=== PATIENT | male | born 1960 | race Caucasian/White ===

== ENCOUNTER 2016-11-18 05:58 | Day surgery (SDC) | payer OTHER ==
--- NOTE | 2016-11-04 10:37 | HP ---
DATE OF ADMISSION: 11/18/2016. DATE OF OFFICE VISIT: 11/03/2016. SURGEON: Dr. Martha Hopkins. PROCEDURE: Left knee arthroscopy with partial medial meniscectomy. CHIEF COMPLAINT: Left knee pain. HISTORY OF PRESENT ILLNESS: Mr. Powell is a 56-year-old gentleman with complaints of left knee pain. An MRI showed a medial meniscus tear and he has elected to proceed with surgery. PAST MEDICAL HISTORY: Hypertension, high cholesterol, coronary artery disease, psoriasis, history of right leg cellulitis. PAST SURGICAL HISTORY: Placement of heart stents, right total hip arthroplasty , left wrist tendon repair, wisdom teeth extraction. CURRENT MEDICATIONS: Atorvastatin, calcium, Benicar, Diltiazem, aspirin, vitamin D, multivitamin and calcium. ALLERGIES: PROCARDIA. FAMILY HISTORY: Heart disease, liver and colon cancer, melanoma. SOCIAL HISTORY: He is a 56-year-old gentleman. He is and lives with his and two kids. He does not smoke or use drugs. Uses occasional alcohol. REVIEW OF SYSTEMS: A complete 14 point review of systems is reviewed with patient and all is negative or noncontributory. PHYSICAL EXAMINATION GENERAL: Well-developed, well-nourished. He is in no acute distress. VITAL SIGNS: 6'1" tall, he is 275 pounds, blood pressure 159/94, heart rate 96. HEENT: Normocephalic, atraumatic. NECK: No palpable lymph nodes. Trachea is midline. CARDIAC: Regular rate and rhythm. PULMONARY: The lungs are clear to auscultation bilaterally. ABDOMEN: Soft, nontender, nondistended. MUSCULOSKELETAL: Left lower extremity: Skin is intact. He does have mild to moderate psoriatic plaques over the left anterior knee. There is a moderate effusion. He has full range of motion. Very tender over the medial joint line. 2+ dorsalis pedis pulses. His lower extremity muscle group strengths are intact at 5/5. He walks with an antalgic type gait favoring his left leg. NEUROLOGIC: He is alert and oriented times three. Cranial nerves II through XII are intact. ASSESSMENT AND PLAN: Mr. Powell is a 56-year-old gentleman with complaints of left knee pain secondary to a medial meniscus tear. He has failed conservative management and has elected to proceed with left knee arthroscopy with partial medial meniscectomy. His surgery will be completed by Dr. Hopkins and he will follow- up with her in 10 to 14 days after the surgery. MARIA ISABEL AQUINO [id number]/[facility] #: [id number] MTDJesse
[2016-11-18] MEDS ORDERED: Buffered Lidocaine 1% SYRIN* 3 ML/SYR SYRINGE INTRADERM ONE (06:00)
[2016-11-18] MEDS ORDERED: ceFAZolin 2 GM PREMIX(*) 2 GM/50 ML BAG IVPB ONE (06:00)
[2016-11-18] MEDS ORDERED: EPINEPHrine AMP 1 MG/ML ONE (07:11)
[2016-11-18] MEDS ORDERED: Bupivacaine 0.5% W/EPI SDV* 30 ML VIAL ONE (07:11)
[2016-11-18] MEDS ORDERED: methylPREDNISolone ACETATE 80* 80 MG/ML 1 ML VIAL ONE (07:11)
[2016-11-18] MEDS ORDERED: Bupivacaine 0.5% SDV PF* 30 ML VIAL ONE (07:15)
[2016-11-18] MEDS ORDERED: fentaNYL* 50 MCG/ML 2 ML VIAL (100 MCG VIAL) ONE ×3 (07:16→08:53)
[2016-11-18] MEDS ORDERED: Midazolam* 1 MG/ML 2 ML VIAL (2 MG) ONE (07:16)
[2016-11-18] MEDS ORDERED: ceFAZolin 1 GM in Dextrose (*) 1 GM/50 ML BAG IVPB ONE (07:33)
[2016-11-18] MEDS ORDERED: Lidocaine 2% PF * 5 ML VIAL ONE (07:53)
[2016-11-18] MEDS ORDERED: Famotidine IV* 10 MG/ML 2 ML (20 mg) ONE (07:53)
[2016-11-18] MEDS ORDERED: Propofol* 10 MG/ML 20 ML BTL IV PUSH ONE (07:53)
[2016-11-18] MEDS ORDERED: Dexamethasone IV* 4 MG/ML 1 ML (4 MG) ONE (07:53)
[2016-11-18] MEDS ORDERED: Ketorolac INJ* 30 MG/ML 1 ML VIAL ONE (07:53)
[2016-11-18] MEDS ORDERED: HYDROcodone/ACETAMIN 5-325 MG* 1 TAB PO PRN (08:00)
[2016-11-18] MEDS ORDERED: Morphine INJ* 2 MG/ML 1 ML SYRINGE IV PRN (08:00)
[2016-11-18] MEDS ORDERED: Acetaminophen TAB* 325 MG PO PRN (08:00)
[2016-11-18] MEDS ORDERED: DiMENhydriNATE IV* 50 MG/ML VIAL IV PUSH PRN (08:00)
[2016-11-18] MEDS ORDERED: PROCHLORPERAZINE INJ 5 MG/ML 2 ML VIAL IV PRN (08:00)
[2016-11-18] MEDS ORDERED: Ondansetron INJ* 2 MG/ML VIAL IV PRN (08:00)
[2016-11-18] MEDS: fentaNYL* 50 MCG/ML 2 ML VIAL (100 MCG VIAL) IV PRN ×3 (08:53→09:15)
[2016-11-18] MEDS ORDERED: oxyCODONE/Acetamin 5/325 MG* TAB ONE (09:21)
[2016-11-18] MEDS ORDERED: Morphine INJ* 4 MG/ML 1 ML SYRINGE ONE (09:38)
[2016-11-18 10:31] VITALS: BP 138/90
--- NOTE | 2016-11-19 00:20 | OP ---
DATE OF OPERATION: 11/18/16 - [facility] DATE OF : 60 SURGEON: Martha Hopkins MD PIPE STRAIGHTENER: MARIA ISABEL Prescott ANESTHESIOLOGIST: Dr. Alejandro. ANESTHESIA: General. PRE-OP DIAGNOSES: Left knee medial meniscal tear, mild arthritis. 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 OPERATIVE PROCEDURE: Left knee arthroscopy with partial medial meniscectomy, medial chondroplasty, anterior synovectomy. ESTIMATED BLOOD LOSS: Less than 25 cc. COMPLICATIONS: None. SPECIMEN: None. BRIEF HISTORY: Mr. Powell is a 56-year-old gentleman who had a twisting injury to the left knee more than 6 weeks ago. Conservative management failed to relieve his pain. His physical and history were consistent with meniscal tear. MRI confirmed a medial meniscal tear. Plain radiographs showed arthritic changes that were mild. Informed consent was obtained from the patient. He wished to proceed with the left knee arthroscopy with partial meniscectomy, possible chondroplasty, possible synovectomy. The patient understood the risks of the surgery included but were not limited to bleeding, infection, damage to nearby structures, continued pain, need for further surgery, stroke, heart attack, blood clot, and . He understood that I felt his psoriasis significantly increased his risk of surgery. On the day of surgery, the patient 's skin was vastly improved without any open wounds. INTRAOPERATIVE FINDINGS: Intraoperatively, the patient was noted to have a complex type tear in the posterior one third of his medial meniscus. There was radial and linear component. This involved the white red zone. He was noted to have a large amount of anterior synovitis as well as some cartilage flapping along the medial femoral condyle. Grade 3 and 4 Outerbridge cartilage changes in the medial compartment involving the medial femoral condyle, grade 2 and 3 Outerbridge cartilage changes in the patellofemoral compartment. DESCRIPTION OF PROCEDURE: Mr. Powell was identified in the preanesthesia unit. His left lower extremity was marked as the correct operative site. Informed consent was signed and placed in the chart. The patient was taken to the operating room and placed under general anesthesia. Left lower extremity was prepped and draped in the usual sterile fashion. Preop time-out was made to correctly identify the patient's side and site. Appropriate perioperative antibiotics were given within 1 hour of incision. A 0.5 cm standard anterolateral portal incision was made along the anterolateral joint line. This area had no psoriasis, plaque and the skin was intact. Trocar was introduced. As soon as the water and light sources were turned on, there was immediate visualization of the knee joint. There was extensive synovitis anteriorly. Patellofemoral compartment showed grade 2 and 3 Outerbridge cartilage changes with significant synovitis impinging with range of motion. Medial gutters showed synovitis and soft tissue, but no loose body. Medial compartment showed the posterior meniscal tear as well as significant osteoarthritis of the medial femoral condyle. This was grade 3 and 4 Outerbridge cartilage changes with a small amount of exposed subchondral bone and cartilage flapping. ACL appeared to be intact. The knee was placed in the [id number] position. No obvious lateral meniscal tear. No significant lateral compartment arthritic changes. Lateral gutter had no abnormality. Under direct visualization, a medial portal incision was made using a 15 blade. Probe was introduced and a second tour of the knee joint was performed. No additional findings were noted. Shaver and radiofrequency ablation wand were used to perform anterior synovectomy. Once the synovitis was cleared, there was no further impingement with patellofemoral range of motion. There was also better visualization of the joint. Small amount of cartilage flapping along the medial femoral condyle was smoothed over with the radiofrequency ablation wand. This chondroplasty was conservative. With appropriate positioning of the leg, the medial compartment was opened up and the posterior meniscus was evaluated with a probe. This was a complex tear with both radial and linear component involving the posterior one third of the medial meniscus. This was in the white red zone mainly. Straight biter and shaver were used to perform partial medial meniscectomy. A smooth border of the medial meniscus was obtained. Radiofrequency ablation wand was used to further smooth the edge of the meniscus in the posterior portion. Further probing showed no additional tears. The knee was copiously irrigated with sterile saline. All instruments were carefully removed. The incisions were closed using interrupted 3-0 nylon suture. Intraarticular injection of 80 mg Depo-Medrol and 6 cc of 0.25% Marcaine was placed in the knee joint. Sterile Xeroform, 4x4's, and Webril were used to cover the incision. John wrap and cold pack was placed over this. The patient's anesthesia was reversed without difficulty. He was taken to the PACU in stable condition. Intended weightbearing will be weightbearing as tolerated. Intended DVT prophylaxis will be aspirin, which is his baseline medication. He will have Keflex for 1 week. [id number]/[facility] #: [id number] MTDD
== END 2016-11-18 10:29 | disposition home or self-care (01) ==
LOC: OR 05:58
PROVIDERS: ATTEND Orthopaedic Surgery Adult Reconstructive Orthopaedic Surgery
DX: S83.242A Other tear of medial meniscus, current injury, left knee, initial encounter (principal); M65.862 Other synovitis and tenosynovitis, left lower leg; X50.9XXA Other and unspecified overexertion or strenuous movements or postures, initial encounter; Y93.9 Activity, unspecified; Y92.9 Unspecified place or not applicable; I10 Essential (primary) hypertension; E78.5 Hyperlipidemia, unspecified; M19.90 Unspecified osteoarthritis, unspecified site
CPT/HCPCS: A9270-GY; J0171; J0690; J1040; J1100; J1885; J2250; J2270; J2704; J3010

== ENCOUNTER 2017-03-21 11:14 | Emergency (ER) | payer OTHER ==
[2017-03-21] MEDS ORDERED: Morphine INJ* 4 MG/ML 1 ML SYRINGE IV ONE (12:36)
[2017-03-21] MEDS ORDERED: Ondansetron INJ* 2 MG/ML VIAL IV ONE (12:36)
[2017-03-21] MEDS ORDERED: NS 0.9% 1000 ML* 1,000 ML IV ONE (12:36)
[2017-03-21 12:55] LABS: Hematocrit 42 % (42-52); Hemoglobin 14.1 g/dl (14.0-18.0); Mean Corpuscular HGB Conc 34 g/dl (31-36); Mean Corpuscular Hemoglobin 31 pg (27-31); Mean Corpuscular Volume 92 fL (80-94); Mean Platelet Volume 9 um3 (7.4-10.4); Red Blood Count 4.56 10^6/ul (4.0-5.4); Red Cell Distribution Width 14 % (10.5-15)
[2017-03-21 12:57] LABS: Urine Bilirubin Negative (Negative); Urine Glucose Negative (Negative); Urine Nitrite Negative (Negative)
[2017-03-21 13:11] LABS: Albumin 3.7 g/dL (3.2-5.2); BUN/Creatinine Ratio 18.8 (8-20); Calcium 9.5 mg/dL (8.6-10.3); EGFR African American 104.2 (>60); Globulin 2.7 g/dL (2-4); Potassium 3.9 mmol/L (3.5-5.0); Total Bilirubin 0.3 mg/dL (0.2-1.0); Total Protein 6.4 g/dL (6.4-8.9)
[2017-03-21] MEDS ORDERED: Iohexol 300* (CONTRAST) 10 ML SDV IV ONE (13:40)
[2017-03-21] MEDS: HYDROmorphone* 1 MG/ML 1 ML SYR IV SLOW PU ONE ×2 (13:42→16:13)
--- NOTE | 2017-03-21 14:25 | RAD ---
HISTORY: Left-sided chest trauma, abdominal pain COMPARISONS: None TECHNIQUE: Multiple contiguous axial CT scans were obtained of the chest, abdomen, and pelvis after the administration of intravenous contrast. Coronal and sagittal multiplanar reformations are submitted for review.. Oral contrast was not administered. FINDINGS: CHEST NECK AND THYROID: The lower neck and thyroid are unremarkable. CHEST WALL: There is no lower cervical, axillary, or supraclavicular lymphadenopathy by size criteria. HEART AND PERICARDIUM: The heart is unremarkable. AORTA AND PULMONARY VASCULATURE: The aorta and pulmonary vasculature are normal. MEDIASTINUM: There is no mediastinal lymphadenopathy by size criteria. CINDY: There is no hilar lymphadenopathy by size criteria. AIRWAY AND ESOPHAGUS: The airway is unremarkable, without endobronchial filling defect. The esophagus is grossly normal. LUNG PARENCHYMA: The lungs are clear. PLEURA: No pleural abnormalities are noted. BONES AND SOFT TISSUES: There is a comminuted fracture of the left scapula, extending into the glenoid. ABDOMEN/PELVIS: LIVER: The liver is diffusely low in attenuation compared to the spleen. . The liver is enlarged measuring 20 cm in long axis. There is a hypervascular lesion of the left lobe of liver on axial image 19 measuring 3 cm in size BILE DUCTS: There is no intrahepatic or extrahepatic biliary dilatation. GALLBLADDER: The gallbladder is normal, without pericholecystic inflammatory change. PANCREAS: The pancreas is normal, without mass or ductal dilatation. SPLEEN: Normal in size and appearance. UPPER GI TRACT: Evaluation of the gastrointestinal tract is limited by incomplete gastric distention. The upper GI tract is unremarkable. SMALL BOWEL \T\ MESENTERY: The small bowel is normal in contour, course, and caliber. There is no obstruction or dilatation. COLON: The colon is normal in contour, course, caliber. There is no pericolonic inflammatory change. ADRENALS: Normal bilaterally. KIDNEYS: The kidneys are normal in shape, size, contour, and axis. There is no hydronephrosis or nephrolithiasis. BLADDER: The bladder is smooth in contour. PELVIC ORGANS: Evaluation is limited by streak artifact from a right hip prosthesis. AORTA: The aorta is normal. IVC: Unremarkable LYMPH NODES: There is no lymphadenopathy by size criteria. ABDOMINAL WALL: There is no evidence for abdominal wall hernia. BONES: There are nondisplaced fractures of the transverse processes of L1, L2, L3, and L4 on the left. There is multilevel degenerative disc disease and osteoarthritis. The patient is status post right hip arthroplasty. OTHER: There is no active arterial extravasation. There is no free intraperitoneal fluid or free intraperitoneal gas IMPRESSION: 1. COMMINUTED FRACTURE OF THE LEFT SCAPULA WITH ARTICULAR EXTENSION TO THE GLENOID. 2. NONDISPLACED FRACTURES OF THE TRANSVERSE PROCESSES OF L1, L2, L3, AND L4 ON THE LEFT. 3. HEPATOMEGALY WITH FATTY INFILTRATION OF LIVER. 4. THERE IS A 3 CM HYPERVASCULAR LESION OF THE LEFT LOBE OF LIVER. RECOMMEND CONSIDERATION OF FURTHER EVALUATION WITH MULTIPHASE CONTRAST-ENHANCED LIVER PROTOCOL CT OR CONTRAST-ENHANCED MRI OF THE ABDOMEN IN THE NONACUTE SETTING
--- NOTE | 2017-03-21 14:28 | RAD ---
HISTORY: Fall, pain left shoulder pain COMPARISONS: CT dated March 21, 2017 VIEWS: 2, Limited frontal internal and external rotation views of the left shoulder FINDINGS: BONE DENSITY: Normal. BONES: Again noted is a minimally displaced fracture of the superior scapula corresponding to the fracture noted on CT. JOINTS: There is osteoarthritis of the AC joint ALIGNMENT: There is no dislocation. SOFT TISSUES: Unremarkable. OTHER FINDINGS: None. IMPRESSION: AGAIN NOTED IS A FRACTURE OF THE SCAPULA DESCRIBED ON CT
--- NOTE | 2017-03-21 15:43 | ED ---
Anne Funes Edward, scribed for Andrey Gustafson on 03/21/17 at 1224 . Upper Extremity Pain - HPI Summary HPI Summary: 56 y/o male YASEMIN s/p sliding fall off a ladder at least 6 feet tall around 2 hours ago. Pt c/o sudden onset, severe L shoulder pain immediately after the fall. Pt is not sure if he had LOC. He also c/o chipping his teeth. Associated sx: L side rib pain, chronic knee pain. The pain is not alleviated with deep breaths. Pt is ambulatory. SHx full R hip replacement, L meniscus tear. PMHx HTN. - History of Current Complaint Chief Complaint: EDExtremityUpper Stated Complaint: FALL Time Seen by Provider: 03/21/17 12:11 Hx Obtained From: Patient Mechanism Of Injury: Fall From Height Of: - at least 6 feet Onset/Duration: Started Hours Ago, Still Present Timing: Lasting Hours Pain Location: Shoulder - L shoulder and L ribcage Associated Signs & Symptoms: Positive: Other - chipped tooth - Allergies/Home Medications Allergies/Adverse Reactions: Allergies Allergy/AdvReac Type Severity Reaction Status Date / Time No Known Allergies Allergy Verified 03/18/17 09:10 PMH/Surg Hx/FS Hx/Imm Hx Previously Healthy: No Endocrine/Hematology History: Denies: Hx Diabetes Cardiovascular History: Reports: Hx Coronary Artery Disease - STENT IN PLACE- PLACED 10 YEARS AGO- DR. GUERRA FOLLOWS, Hx Hypertension - ON MEDICATION FOR Denies: Hx Pacemaker/ICD History: Denies: Hx Renal Disease Musculoskeletal History: Reports: Hx Arthritis - PSORIATIC ARTHRITIS Sensory History: Reports: Hx Contacts or Glasses - GLASSES Denies: Hx Hearing Aid Opthamlomology History: Reports: Hx Contacts or Glasses - GLASSES Psychiatric History: Reports: Hx Anxiety - OCCASIONAL-SITUATIONAL- NO MEDICATION , Hx Depression - OCCASIONAL-SITUATIONAL- NO MEDICATION Denies: Hx Panic Disorder - Surgical History Surgery Procedure, Year, and Place: CARDIAC STENT 2004,. LEFT WRIST 2009 RECONSTRUCTION NO HARDWARE. RIGHT HIP REPLACEMENT 12/2012. LEFT KNEE MENISCUS REPAIR 10/2016 Hx Anesthesia Reactions: No Infectious Disease History: No Infectious Disease History: Denies: Traveled Outside the [place] in Last 30 Days - Family History Known Family History: Negative: Cardiac Disease, Diabetes - Social History Alcohol Use: Daily Alcohol Amount: 1 GLASS OF WINE Substance Use Type: Reports: None Smoking Status (MU): Never Smoked Tobacco Review of Systems Constitutional: Negative Eyes: Negative ENT: Other - Chipped tooth Cardiovascular: Negative Respiratory: Negative Gastrointestinal: Negative Genitourinary: Negative Positive: Arthralgia - L shoulder pain, pain @ L ribcage, chronic knee pain Skin: Negative Neurological: Negative Psychological: Normal All Other Systems Reviewed And Are Negative: Yes Physical Exam Triage Information Reviewed: Yes Vital Signs On Initial Exam: Initial Vitals Temp Pulse Resp BP Pulse Ox 98.4 F 72 14 146/86 97 03/21/17 11:23 03/21/17 11:23 03/21/17 11:23 03/21/17 11:23 03/21/17 11:23 Vital Signs Reviewed: Yes Appearance: Positive: Well-Appearing, No Pain Distress Skin: Positive: Warm, Skin Color Reflects Adequate Perfusion, Dry Head/Face: Positive: Normal Head/Face Inspection Eyes: Positive: EOMI, HUMA ENT: Positive: Normal ENT inspection Neck: Positive: Supple, Nontender Respiratory/Lung Sounds: Positive: Clear to Auscultation, Breath Sounds Present Cardiovascular: Positive: RRR, Pulses are Symmetrical in both Upper and Lower Extremities Abdomen Description: Positive: Soft, Other: - LUQ tenderness Bowel Sounds: Positive: Present Musculoskeletal: Positive: Strength/ROM Intact, Other - Tenderness @ L shoulder , L chest Neurological: Positive: Normal, Sensory/Motor Intact, Alert, Oriented to Person Place, Time - [place] Coma Scale Coma Scale Total: 15 Diagnostics - Vital Signs Vital Signs Temp Pulse Resp BP Pulse Ox 03/21/17 11:23 98.4 F 72 14 146/86 97 - Laboratory Result Diagrams: 03/21/17 12:34 03/21/17 12:34 Lab Statement: Any lab studies that have been ordered have been reviewed, and results considered in the medical decision making process. - Radiology SHOULDER XR Xray Interpretation: Positive (See Comments) - AGAIN NOTED IS A FRACTURE OF THE SCAPULA DESCRIBED ON CT. ED physician is agreeable. Radiology Interpretation Completed By: Radiologist - CT CHEST/ABD/PEL CT CT Interpretation: Positive (See Comments) - 1. COMMINUTED FRACTURE OF THE LEFT SCAPULA WITH ARTICULAR EXTENSION TO THE GLENOID. 2. NONDISPLACED FRACTURES OF THE TRANSVERSE PROCESSES OF L1, L2, L3, AND L4 ON THE LEFT. 3. HEPATOMEGALY WITH FATTY INFILTRATION OF LIVER. 4. THERE IS A 3 CM HYPERVASCULAR LESION OF THE LEFT LOBE OF LIVER. RECOMMEND CONSIDERATION OF FURTHER EVALUATION WITH MULTIPHASE CONTRAST-ENHANCED LIVER PROTOCOL CT OR CONTRAST-ENHANCED MRI OF THE ABDOMEN IN THE NONACUTE SETTING. ED PHYSICIAN IS AGREEABLE CT Interpretation Completed By: Radiologist - EKG 1 EKG Interpretation: 12:58 - SINUS RHYTHM @ 72 BPM. NO ACUTE CHANGES Course/Dx - Course Assessment/Plan: 56 y/o male BIBA s/p sliding fall off a ladder at least 6 feet tall around 2 hours ago. Pt c/o sudden onset, severe L shoulder pain immediately after the fall. Pt is not sure if he had LOC. He also c/o chipping his teeth. Associated sx: L side rib pain, chronic knee pain. The pain is not alleviated with deep breaths. Pt is ambulatory. SHx full R hip replacement, L meniscus tear. PMHx HTN. EKG 12:58 - SINUS RHYTHM @ 72 BPM. Pt was given 4 mg Morphine in the ED course. Pt still c/o severe L shoulder pain. Pt was given 1 mg Dilaudid IV. SHOULDER XR SHOWS AGAIN NOTED IS A FRACTURE OF THE SCAPULA DESCRIBED ON CT. CHEST/ABD/PEL CT SHOWS 1. COMMINUTED FRACTURE OF THE LEFT SCAPULA WITH ARTICULAR EXTENSION TO THE GLENOID. 2. NONDISPLACED FRACTURES OF THE TRANSVERSE PROCESSES OF L1, L2, L3, AND L4 ON THE LEFT. 3. HEPATOMEGALY WITH FATTY INFILTRATION OF LIVER. 4. THERE IS A 3 CM HYPERVASCULAR LESION OF THE LEFT LOBE OF LIVER. RECOMMEND CONSIDERATION OF FURTHER EVALUATION WITH MULTIPHASE CONTRAST-ENHANCED LIVER PROTOCOL CT OR CONTRAST-ENHANCED MRI OF THE ABDOMEN IN THE NONACUTE SETTING. SPOKE WITH DR. CUBA DAWKINS AT [place] @ 14: 45 who accepted the pt for transfer. - Diagnoses Provider Diagnoses: Fracture of spinous process of lumbar vertebra, Communited left scapular fracture, Fall Discharge - Discharge Plan Condition: Stable Disposition: TRANS HIGHER LVL OF CARE FAC Referrals: Wyatt Rasmussen MD [Primary Care Provider] - The documentation as recorded by the Anne guy Edward accurately reflects the service I personally performed and the decisions made by , Andrey Gustafson.
[2017-03-21] MEDS ORDERED: HYDROmorphone* 1 MG/ML 1 ML SYR ONE (16:12)
[2017-03-21 16:47] VITALS: BP 169/86
== END 2017-03-21 15:25 | disposition short-term general hospital (02) ==
LOC: ED 11:14
DX: S32.009A Unspecified fracture of unspecified lumbar vertebra, initial encounter for closed fracture (principal); S42.102A Fracture of unspecified part of scapula, left shoulder, initial encounter for closed fracture; W11.XXXA Fall on and from ladder, initial encounter; Y93.89 Activity, other specified; Y92.89 Other specified places as the place of occurrence of the external cause
CPT/HCPCS: 36415; 71260; 74177; 80053; 81003; 83605; 83690; 84484; 85025; 85610; 93005; 96374; 96375; 99284; J1170; J2270; J2405; Q9967

== ENCOUNTER 2018-12-14 08:04 | Observation (INO) | payer OTHER ==
[2018-12-14] MEDS ORDERED: Midazolam* 1 MG/ML 5 ML VIAL (5 MG) ONE (09:30)
[2018-12-14] MEDS ORDERED: Lidocaine 1% INJ* 10 MG/ML 30 ML SDV ONE (09:30)
[2018-12-14] MEDS ORDERED: fentaNYL* 50 MCG/ML 2 ML VIAL (100 MCG VIAL) ONE ×2 (09:30→11:44)
[2018-12-14] MEDS ORDERED: Iohexol 350 (CONTRAST) 200 ML MDV IV ONE ×2 (09:31)
[2018-12-14] MEDS ORDERED: nitroGLYCERIN DRIP* 25,000 MCG/250 ML BTL ONE (09:33)
[2018-12-14] MEDS ORDERED: Heparin(*) 1000 UNIT/ML 10 ML VIAL CATH LAB IV ONE ×2 (09:33→11:50)
[2018-12-14] MEDS ORDERED: VERAPAMIL 2.5 MG/ML 2 ML VIAL ** 5 mg/2 ml ONE (09:33)
[2018-12-14] MEDS ORDERED: Heparin 2 UNITS/ML IVPREMIX* 2,000 UNIT/1,000 ML BAG IV ONE (09:34)
[2018-12-14] MEDS ORDERED: Adenosine* 3 MG/ML VIAL ONE (11:13)
[2018-12-14] MEDS ORDERED: Ticagrelor* 90 MG TAB PO ONE (11:34)
[2018-12-14] MEDS ORDERED: Acetaminophen TAB* 325 MG PO PRN (12:24)
[2018-12-14] MEDS ORDERED: Nitroglycerin TAB 0.4 MG* 0.4 MG TAB SL PRN ×2 (12:24→12:29)
[2018-12-14] MEDS ORDERED: NS 0.9% 1000 ML** 1,000 ML IV SCH (12:30)
[2018-12-14] MEDS ORDERED: Atorvastatin* 80 MG TAB PO SCH (17:00)
--- NOTE | 2018-12-14 20:36 | CATH ---
CC: Dr. Rasmussen; Dr. Wright * STENT REPORT: DATE OF PROCEDURE: 12/14/18 - ROOM #ICU-09 PRIMARY CARE PHYSICIAN: Dr. Rasmussen. CARBON GRINDER: Dr. Wright. PROCEDURES: 1. Right radial artery access. 2. FFR evaluation, circumflex. 3. FFR evaluation, RCA. 4. Bilateral selective coronary cineangiography. 5. Left heart catheterization. 6. Stent placement, RCA, 3.0 x 18 mm Xience Lynette drug-eluting stent, postdilated with a 3.25 x 15 NC balloon. HISTORY: A 58-year-old male with remote stenting LAD 15 years ago, now with 2 months of angina occurring both at rest as well as exertion. He has had 2 nocturnal episodes. Stress imaging showed a moderate inferolateral reversible defect. PROCEDURE ACCESS: Right radial artery sheath 6F slender. MEDICATIONS: 1. Subcu lidocaine. 2. IV Versed. 3. IV fentanyl. 4. Heparin 3000 units. 5. Nitroglycerin 300 mcg. 6. Verapamil 3 mg IA. 7. Brilinta 180 mg p.o. loading dose. 8. Heparin total 10,000 units. DIAGNOSTIC CATHETER: 5F TIG4, which was also used for left heart pressures and to perform FFR of the circumflex. GUIDE: RCA 6F R4 wire, pressure guidewire. HEMODYNAMICS: AO 120/81, LV 114/18, no aortic valve gradient on pullback. FFR, circumflex: After 100 mcg of IC nitroglycerin, with 200 mcg of IC adenosine was 0.97. Repeat FFR was 0.96. FFR, RCA: Using the same wire through the 6FR4 guide after 100 mcg of IC nitroglycerin and 100 mcg IC adenosine, FFR 0.73, repeat 0.76. Due to the history of rest and 2 episodes of nocturnal angina in spite of, with intermediate risk stress imaging, and low FFR value in RCA, it was stented even though he has been on no antianginals. ANGIOGRAPHY: Left main: The left main is short, has no stenosis. The catheter tended to be subselective. LAD: The LAD is large, supplies a moderate first diagonal, a moderate second diagonal, which has 30% proximal stenosis, after which there is a previously placed stent, which has very mild intimal hyperplasia without significant stenosis. Distally, the LAD wraps around the apex. Circumflex: The circumflex is large, not dominant, with a [id number] ramus, 2 small marginals, the mid circumflex then has a smooth 60% stenosis before a moderate posterolateral followed by a very large posterolateral, which has 30% stenosis. The mid circumflex lesion was evaluated with FFR and was insignificant. RCA: The RCA is moderate, dominant with somewhat slow flow, the proximal RCA has a 70% stenosis, which was evaluated with FFR, was stented because of low FFR value, rest angina including nocturnal angina, moderate-sized ischemic defect on imaging, in spite of the patient being on no antianginals. After stent placement, the stent is slightly undersized, after larger balloon high pressure postdilatation to 20 atmospheres with a 3.25 mm balloon, there is no residual stenosis. There is no loss of branches, no dissection. CONCLUSION: 1. Two-vessel coronary artery disease with nonischemic FFR mid circumflex, ischemic FFR proximal RCA, excellent angiographic results with drug-eluting stent placement with high pressure post dilatation. 2. Normal left-sided hemodynamics aside from elevated LVEDP. 3. Successful right radial artery access. [id number] #: [id number] MTDD
[2018-12-14] MEDS: Ticagrelor* 90 MG TAB PO SCH (20:48)
[2018-12-14] MEDS: Clobetasol 0.05% OINT* 30 GM TUBE TOPICAL SCH (20:49)
[2018-12-15 06:08] LABS: BUN/Creatinine Ratio 22.4 (8-20); Calcium 9.3 mg/dL (8.6-10.3); EGFR Non-African American 92.6 (>60); Potassium 4.2 mmol/L (3.5-5.0)
[2018-12-15] MEDS ORDERED: Hydrochlorothiazide TAB* 25 MG PO SCH (09:00)
[2018-12-15] MEDS ORDERED: Valsartan TAB* 160 MG PO SCH (09:00)
[2018-12-15] MEDS ORDERED: Aspirin 81 mg CHEW TAB* 81 MG TAB.CHEW PO SCH (09:00)
[2018-12-15] MEDS ORDERED: Aspirin EC TAB* 81 MG TAB.EC PO SCH (09:00)
[2018-12-15] MEDS: Clobetasol 0.05% OINT* 30 GM TUBE TOPICAL SCH (09:19)
[2018-12-15] MEDS: Ticagrelor* 90 MG TAB PO SCH (09:19)
[2018-12-15 10:30] VITALS: BP 112/83
--- NOTE | 2018-12-15 12:30 | DS ---
Amended report to enter cosigning physician. CC: Dr. Rasmussen* DISCHARGE SUMMARY: DATE OF ADMISSION: 12/14/18 TENTATIVE DATE OF DISCHARGE: Pending no complications, 12/15/18 ATTENDING PHYSICIAN: Dr. Terrell Montero, Cardiology* (dictated by Sonia Addison NP). PRIMARY PHYSICIAN: Dr. Rasmussen. PRIMARY FINANCIAL INTERNSHIP: Dr. Wright. ADMITTING DIAGNOSES: 1. Abnormal stress test revealing moderate inferolateral ischemia on 12/09/18, here for elective left heart catheterization. 2. History of coronary artery disease with prior intervention to LAD in 2003. 3. History of hypertension. 4. History of hyperlipidemia. DISCHARGE DIAGNOSES: 1. Abnormal Lexiscan nuclear stress test suggestive of moderate inferolateral ischemia, status post 3.0 x 18 mm Xience Lynette drug-eluting stent to right coronary artery, on aspirin and Brilinta therapy. Crestor was increased to 20 mg, not on beta-armaan due to relative bradycardia. 2. History of hyperlipidemia, goal LDL less than 70, on rosuvastatin therapy, which is to be increased to 20 mg. He will need repeat fasting lipid and liver function tests in 6 to 8 weeks' time. Please note LDL was 80 on 12/13/18. 3. History of hypertension. Current blood pressure 133/91, on Benicar with hydrochlorothiazide therapy. PROCEDURES PERFORMED: The patient had an elective left heart catheterization performed on 12/14/[address] Freddy Ba. A 6-Tamazight sheath catheter was inserted into the right radial artery. Left main was short, but no stenosis. LAD large, supplies moderate first diag. Moderate second diag which had 30% proximal stenosis. After that, there was a previously placed stent which had very mild intimal hyperplasia without significant stenosis. Distally the LAD wraps around the apex. Left circumflex large, nondominant. [id number] ramus. Two small marginals. Mid circumflex then had smooth 60% stenosis before the moderate posterolateral followed by very large posterolateral which had 30% stenosis. Mid circumflex lesion was evaluated with FFR and was not significant. Right coronary artery was moderate dominant with somewhat slow flow to proximal RCA with 70% stenosis which was evaluated by FFR. It was stented because of low FFR value, rest angina including nocturnal angina, moderate size ischemia defect on imaging in spite of the patient being on no antianginals. The patient underwent successful 3.0 x 18 mm Xience Lynette drug- eluting stent postdilatation with 3.25 x 15 NC balloon. COMPLICATIONS: None. COURSE OF HOSPITAL STAY: This is a pleasant 58-year-old male patient with a notable history of coronary artery disease with remote LAD stenting in 2003 in addition to hypertension, hyperlipidemia. He was evaluated in our office on 06/14 for risk stratification for a colonoscopy. At that visit he had complained of chest discomfort. Apparently episodes were occurring during the night time hours and also with rest according to medical records. He underwent a Lexiscan nuclear stress test on 12/09/18. Rest EF 74%, stress EF 62%, TID index 1.24. There was a moderate defect of moderate severity in the inferolateral wall. Normal perfusion seen throughout the myocardium. Regadenoson stress ECG did not induce chest pain. There was no arrhythmias. No new ST segment changes. Given new reversible inferolateral defect, the patient presented to [facility] on 12/14/18 for elective left heart catheterization. Prior to having the procedure performed, the patient had basic blood work on 12/13/18, LDL was 80, white count 7.8, hemoglobin 15.6, hematocrit 46, platelets 190, INR 0.88. Sodium 137, potassium 4.3, chloride 106 , creatinine 0.91, BUN 19. He underwent the above- mentioned procedure. Postprocedure, he was transferred to the ICU, was monitored overnight. No events have occurred. He offers no complaints. Vital signs are stable. Right radial access site was inspected. There is no evidence of hematoma. He has strong pulse with cap refill less than 3 seconds. Most recent vital signs: Temperature 97.4, pulse 55, blood pressure 133/91, oxygenation 96%, respirations 15. DISCHARGE DIET: Low-cholesterol, low-fat diet. DISCHARGE MEDICATIONS: Include: 1. Aspirin 81 mg a day. 2. Brilinta 90 mg p.o. b.i.d. 3. Benicar with hydrochlorothiazide 20/12.5 mg 1 tablet b.i.d. 4. Rosuvastatin 5 mg a day. 5. Magnesium 400 mg a day. 6. Vitamin D3 1000 units by mouth daily. 7. Multivitamin 1 a day. 8. Nitroglycerin p.r.n. DISCHARGE ACTIVITY: No driving for 2 to 3 days. No lifting more than 5 to 10 pounds for 4 to 5 days. He was instructed that he can shower, but he is to not soak right radial access site. The patient was given free 30-day supply of Brilinta therapy prior to leaving [facility]. The patient is to see Dr. Rasmussen in 7 to 10 days. The patient has a followup appointment on 12/22/18 at 3:00 p.m. [place]. Wright. Dr. Montero has personally seen and examined the patient and agrees with the above assessment and plan. The patient is to be discharged home. SONIA ADDISON NP I have personally seen and examined the patient and reviewed our plans at time of discharge. I agree with the above recommendations and plans. [id number]/[facility] #: [id number] [place]
== END 2018-12-15 11:15 | disposition home or self-care (01) ==
LOC: CHICATH 08:04 → INTOOBSV 12:34 → UNDOADMIN 12:34 → ICU 12:34
PROVIDERS: ADMIT Internal Medicine Cardiovascular Disease; ATTEND Internal Medicine Cardiovascular Disease
DX: R94.39 Abnormal result of other cardiovascular function study (principal); R07.9 Chest pain, unspecified; I25.10 Atherosclerotic heart disease of native coronary artery without angina pectoris; I10 Essential (primary) hypertension; E78.5 Hyperlipidemia, unspecified; Z79.82 Long term (current) use of aspirin; Z95.9 Presence of cardiac and vascular implant and graft, unspecified
CPT/HCPCS: 36415; 80048; 85347; 85730; 87641; 93005; 93458; 99156; 99157; A9270-GY; C1725; C1769; C1876; C1887; C9600-RC; G0378; J0153; J1644; J2250; J3010

== ENCOUNTER 2023-10-22 08:00 | Observation (INO) ==
[~2023-10-22 08:00] MED LIST: HYDROmorphone 1 MG/1 ML SYRINGE IV PRN; Naloxone 0.4 mg VIAL 0.4 mg/ml 1 ml VIAL IV PRN; Ondansetron 4 mg VIAL 2 MG/ML 2 ml VIAL IV PRN
[2023-10-22] MEDS ORDERED: Buffered Lidocaine 1% SYRIN 1 ml ONE (08:45)
[2023-10-22] MEDS ORDERED: ceFAZolin 2 GM PREMIX 2 GM/50 ML BAG ONE (08:45)
[2023-10-22] MEDS ORDERED: Tranexamic Acid 1 GM/100ML BAG 2,000 MG/200 ML BAG IV ONE (08:45)
[2023-10-22] MEDS ORDERED: ceFAZolin 1 GM in Dextrose 1 GM/50 ML BAG ONE (08:56)
[2023-10-22] MEDS ORDERED: Lidocaine 2% PF 5 ML VIAL ONE (08:59)
[2023-10-22] MEDS ORDERED: Propofol 10 MG/ML 20 ML BTL ONE (08:59)
[2023-10-22] MEDS ORDERED: Midazolam 2 mg/2 ml VIAL 1 mg/ml 2 ml VIAL (2 mg) ONE (09:00)
[2023-10-22] MEDS ORDERED: fentaNYL 100 mcg/2 ml 50 MCG/ML VIAL ONE ×2 (09:00→14:18)
[2023-10-22 09:22] LABS: Rapid COVID-19 Molecular Undetected (Undetected)
[2023-10-22] MEDS ORDERED: ROPIVACAINE 5 MG/ML 30 ML BTL (0.5%) ONE (10:42)
[2023-10-22] MEDS ORDERED: HYDROmorphone 0.5 MG/0.5 ML SYRINGE ONE ×2 (11:31→11:51)
[2023-10-22] MEDS ORDERED: Rocuronium 50 mg VIAL 10 mg/ml 5 ml VIAL (50 mg) ONE ×2 (11:33→12:19)
[2023-10-22] MEDS ORDERED: Dexamethasone IV 4 MG/ML VIAL 1 ml VIAL ONE (11:56)
[2023-10-22] MEDS ORDERED: Ondansetron 4 mg VIAL 2 MG/ML 2 ml VIAL ONE (11:56)
[2023-10-22] MEDS ORDERED: Acetaminophen IV 1 GM/100ML 1,000 MG/100 ML BAG IV ONE ×2 (13:13→14:51)
[2023-10-22] MEDS ORDERED: Magnesium Hydroxide LIQ 30 ML UDC PO PRN (13:59)
[2023-10-22] MEDS ORDERED: Morphine 2 MG/ML SYRINGE IV PRN (13:59)
[2023-10-22] MEDS ORDERED: Lactulose 30 ml UDC PO PRN (13:59)
[2023-10-22] MEDS: fentaNYL 100 mcg/2 ml 50 MCG/ML VIAL IV PRN (14:21)
[2023-10-22] MEDS: Acetaminophen IV 1 GM/100ML 1,000 MG/100 ML BAG IV PRN (15:00)
[2023-10-22] MEDS: Lactated Ringers 1000 ml BAG 1,000 ML IV SCH ×2 (16:00→16:52)
[2023-10-22] MEDS: Buffered Lidocaine 1% SYRIN 1 ml INTRADERM ONE (16:52)
[2023-10-22] MEDS: Aspirin EC 81 mg TAB.EC (enteric coated) PO SCH (18:45)
[2023-10-22] MEDS: ceFAZolin 1 GM ADVAN 1 GM in NS 0.9% 50 ML 50 ML IVPB SCH (20:24)
[2023-10-22] MEDS: Magnesium Hydroxide LIQ 30 ML UDC PO SCH (20:25)
[2023-10-23 06:29] LABS: Hematocrit 37.1 % (38-53); Hemoglobin 12.3 g/dL (13.2-16.3); Mean Platelet Volume 9.1 fL (7.5-11.2); Platelet Count 178 10^3/uL (150-450)
[2023-10-23 06:51] LABS: Calcium 8.5 mg/dL (8.6-10.3); Creatinine, Serum 0.94 mg/dL (0.67-1.17); Potassium 4.4 mmol/L (3.5-5.0); eGFR CKD-EPI 91.1 (>60)
[2023-10-23] MEDS: Vitamin THERAPEUTIC TAB PO SCH (08:36)
[2023-10-23 11:11] VITALS: BP 116/60
== END 2023-10-23 13:20 | disposition home or self-care (01) ==
LOC: OR 08:00 → SSU 08:00
PROVIDERS: ADMIT Orthopaedic Surgery Adult Reconstructive Orthopaedic Surgery; ATTEND Orthopaedic Surgery Adult Reconstructive Orthopaedic Surgery